=== PATIENT | male | born 1985 | race Caucasian/White ===

== ENCOUNTER 2021-06-23 08:05 | Emergency (ER) | payer SELFPAY ==
--- NOTE | 2021-06-23 08:13 | W.ED.CHESTPA ---
HPI - Chest Pain General: Chief Complaint: Chest Pain Stated Complaint: STABBING CP X 2 DAYS, DIFF BREATHING Time Seen by Provider: 06/23/21 08:07 History of Present Illness: HPI narrative: Mr. Merrill is a 36-year-old gentleman who presents the emergency department due to chest pain. Symptom onset was yesterday while at rest. He describes occasionally sharp and sometimes burning left anterior chest pain. There was one episode of radiation to the left arm which resolved and one episode of chills. He does have mild associated nausea. Overall the course of symptoms has persisted. Intensity is moderate. He denies exertional component or worsening with any particular activity or movement. He does have a history of tobaccoism and positive family history of early heart disease. No infectious symptoms. He denies sick contacts. Denies history of IV drug use he is not vaccinated against COVID-19. No other specific changes in health, exacerbating, or alleviating factors identified. Review of Systems General: Reports: 10 or more systems reviewed and unremarkable except in HPI and below Narrative: CONSTITUTIONAL: denies fever, fatigue, weakness EYES - denies pain, denies loss of vision NOSE - denies congestion or rhinorrhea. THROAT - denies sore throat or difficulty swallowing. CARDIOVASCULAR -see HPI RESPIRATORY -see HPI GASTROINTESTINAL - denies abdominal pain, no nausea vomiting, no changes in bowel habits GENITOURINARY - denies dysuria or urinary frequency MUSCULOSKELETAL- denies deformity or pain SKIN - denies rashes or new changed skin lesions NEUROLOGIC - denies focal weakness or sensory changes HEMATOLOGIC/LYMPHATIC - denies easy bruising or lymphadenopathy. Physical Exam Narrative: EXAM NARRATIVE: GENERAL/CONSTITUTIONAL - well-appearing. No acute distress. Eyes - PERRL, no conjunctival injection ENMT - Atraumatic external nose and ears. Moist mucous membranes NECK - supple. trachea midline CARDIOVASCULAR - regular rate and rhythm. No murmurs appreciated. RESPIRATORY -clear to auscultation bilaterally. No retractions or accessory muscle use. ABDOMEN/GI - Nontender/Nondistended. No tenderness to percussion or evidence of peritonitis MSK - Extremities without obvious deformity or tenderness to palpation SKIN - Warm, Dry NEURO - alert and appropriately oriented. strength and sensation intact. Moves all extremities equally. PSYCH - Appropriate mood and affect Course ED course: - Patient was seen and evaluated by me at bedside - Patient placed on cardiac monitors, IV access obtained - Initial evaluation notable for no acute distress, nontoxic appearance. Chest pain is not reproducible with palpation or deep inspiration on physical exam. - Based on initial EKG with concerning ST elevation in lead V1 and V2 patient was STEMI activated. Cardiology to bedside to evaluate patient, no acute intervention required at this time. - Labs notable for No significant abnormality to explain the patient's symptoms. D-dimer negative. Delta troponin negative with symptom onset greater than 6 hours ago. - Imaging notable for ED read of chest x-ray with no lobar consolidation or pneumothorax - Upon serial reexamination after treatment the patient was similar - Based on patient history, evaluation, labs, and imaging as interpreted the most likely cause of the patient's condition is unclear though based on low risk heart score does not require hospitalization at this time. Outpatient cardiology follow-up ordered. - The results of ED evaluation were discussed with the patient including prescriptions and/or symptomatic cares (if applicable) including appropriate and responsible use, followup plan, and return precautions. The patient verbalized understanding and felt safe for discharge. - Patient discharged in satisfactory condition. Vital Signs: Vital signs: Vital Signs Temperature 98.2 F 06/23/21 08:16 Pulse Rate 70 06/23/21 08:47 Respiratory Rate 23 H 06/23/21 08:47 Blood Pressure 129/75 06/23/21 08:47 Pulse Oximetry 98 06/23/21 08:47 MDM - Chest Pain Medical Records: Attestation: I reviewed the patient's medical records. Lab Data: Attestation: I reviewed the patient's lab results. Labs: Lab Results 06/23/21 06/23/21 06/23/21 Range/Units 08:25 08:25 08:25 WBC 8.7 (4.0-10.0) 10^3/ uL RBC 5.55 H (4.1-5.3) 10^6/u L Hgb 15.6 (11.7-16.6) g/dL Hct 47.8 (42.0-52.0) % MCV 86.1 (80-94) fl MCH 28.1 (28.0-34.0) pg MCHC 32.6 (30.0-36.0) g/dL RDW 13.1 (12.1-15.1) % Plt Count 194 (130-400) 10^3/c mm MPV 10.6 H (7.4-10.4) fL Neut % (Auto) 64.5 % Lymph % (Auto) 20.0 % [place] % (Auto) 10.3 % Eos % (Auto) 2.5 % Baso % (Auto) 1.3 % Neut # (Auto) 5.59 (1.8-7.7) 10^3/u L Lymph # (Auto) 1.7 (0.8-4.8) 10^3/u L [place] # (Auto) 0.9 (0.2-0.9) 10^3/u L Eos # (Auto) 0.2 (0.0-0.8) 10^3/u L Baso # (Auto) 0.1 (0.0-0.1) 10^3/u L Nucleated RBC % (a uto) 0 % Nucleated RBCs # 0.0 /100WBC D-Dimer (0-0.59) ug/mIFE U Sodium 138 (136-145) mmol/L Potassium 4.0 (3.5-5.1) mmol/L Chloride 102 (98-107) mmol/L Carbon Dioxide 30 H (22-29) mmol/L Anion Gap 10.0 (5-19) BUN 13 (6-20) mg/dL Creatinine 0.9 (0.7-1.2) mg/dL GFR Calculation 95.0 (90-130) mL/min Glucose 70 (65-115) mg/dL Calculated Osmolal ity 285 (285-295) mOsm/k g Calcium 9.7 (8.5-10.5) mg/dL Total Bilirubin 0.7 (0.15-1.2) mg/dL AST 43 H (0-40) U/L ALT 39 (0-41) U/L Alkaline Phosphata se 75 (40-130) IU/L Troponin T Baselin e 6 (0-15) ng/L Troponin T 120 Min [place] (0-15) ng/L Delta Troponin T (0-10) ABS# Total Protein 6.7 (6.6-8.7) g/dL Albumin 4.3 (3.5-5.2) g/dL Globulin 2.4 (1.3-4.6) g/dL Lipase 37 (13-60) U/L SARS-CoV-2 Ag (Rap id) (Negative) 06/23/21 06/23/21 06/23/21 Range/Units 08:45 10:55 11:25 WBC (4.0-10.0) 10^3/ uL RBC (4.1-5.3) 10^6/u L Hgb (11.7-16.6) g/dL Hct (42.0-52.0) % MCV (80-94) fl MCH (28.0-34.0) pg MCHC (30.0-36.0) g/dL RDW (12.1-15.1) % Plt Count (130-400) 10^3/c mm MPV (7.4-10.4) fL Neut % (Auto) % Lymph % (Auto) % [place] % (Auto) % Eos % (Auto) % Baso % (Auto) % Neut # (Auto) (1.8-7.7) 10^3/u L Lymph # (Auto) (0.8-4.8) 10^3/u L [place] # (Auto) (0.2-0.9) 10^3/u L Eos # (Auto) (0.0-0.8) 10^3/u L Baso # (Auto) (0.0-0.1) 10^3/u L Nucleated RBC % (a uto) % Nucleated RBCs # /100WBC D-Dimer 0.21 (0-0.59) ug/mIFE U Sodium (136-145) mmol/L Potassium (3.5-5.1) mmol/L Chloride (98-107) mmol/L Carbon Dioxide (22-29) mmol/L Anion Gap (5-19) BUN (6-20) mg/dL Creatinine (0.7-1.2) mg/dL GFR Calculation (90-130) mL/min Glucose (65-115) mg/dL Calculated Osmolal ity (285-295) mOsm/k g Calcium (8.5-10.5) mg/dL Total Bilirubin (0.15-1.2) mg/dL AST (0-40) U/L ALT (0-41) U/L Alkaline Phosphata se (40-130) IU/L Troponin T Baselin e (0-15) ng/L Troponin T 120 [address] [place] 6.00 (0-15) ng/L Delta Troponin T 0 (0-10) ABS# Total Protein (6.6-8.7) g/dL Albumin (3.5-5.2) g/dL Globulin (1.3-4.6) g/dL Lipase (13-60) U/L SARS-CoV-2 Ag (Rap id) Negative (Negative) EKG Data^: EKG 1: Attestation: I personally reviewed and interpreted this EKG as follows: EKG interpretation date: 06/23/21 EKG interpretation time: 08:45 Ischemic changes: acute STEMI Interpretation: Rhythm at a rate of 71. [place] interval 215, QRS duration 94, QTc 365 Normal axis Interpretation: Sinus rhythm. First-degree AV block. ST elevation in lead V1 and V2. STEMI activated. EKG 2: Attestation: I personally reviewed and interpreted this EKG as follows: EKG interpretation date: 06/23/21 EKG interpretation time: 10:55 Prior EKG tracings: available for review Ischemic changes: non-specific ST-T wave changes Interpretation: Twelve-lead EKG shows a regular sinus rhythm at a rate of 64. [place] interval 222, QRS duration 93, QTc 376. Normal axis. Interpretation: Sinus rhythm, similar to prior. Discharge Plan Discharge Patient Disposition: Home Clinical Impression: Chest pain, Shortness of breath Condition: Stable Prescriptions: No Action multivitamin Tablet 1 tab PO DAILY RF: 0 naproxen 1 - 2 tab PO Q4H PRN (Reason: Pain) RF: 0 prednisone 20 mg tablet 20 mg PO DAILY Qty: 7 RF: 0 Celebrex 100 mg capsule 100 mg PO BID Qty: 20 RF: 0 Discharge Orders: Discharge ED (Routine); Ordered 06/23/21 Ordered By: Asa Williamson Discharge Diet: Usual diet Discharge Activity: Resume usual activity Patient Instructions: Chest Pain (ED), Dyspnea (ED) Activity Restrictions/Additional Instructions: Thank you for visiting the emergency department. You were seen and evaluated for chest pain. The exact cause of your symptoms is somewhat unclear though we did not find evidence of heart attack or other significant pathology. Based on your history we will have you follow-up in outpatient basis with cardiology to determine if further evaluation is needed. Please follow-up with your primary care provider. Please return the emergency department for anything that you are concerned about and feel needs emergency department evaluation. Coding Level of Care Code ED Concrete Buster Operator for Tito Albrecht
[2021-06-23 08:16] VITALS: BP 151/81; PULSE 76; RESP 21; TEMP 36.8; O2SAT 100; BMI 26.7
--- NOTE | 2021-06-23 08:20 | XRR_ITS ---
PROCEDURE INFORMATION: Exam: XR Chest Exam date and time: 06/23/2021 8:20 AM Age: 36 years old Clinical indication: Pain; Shortness of breath; Angina pectoris; Additional info: Chest pain TECHNIQUE: Imaging protocol: XR of the chest. Views: 1 view. COMPARISON: CR Chest 1 [place] [id number] 10/29/2015 6:21 AM FINDINGS: Lungs: Unremarkable. No consolidation. Pleural spaces: Unremarkable. No pleural effusion. No pneumothorax. Heart/Mediastinum: Unremarkable. No cardiomegaly. Bones/joints: Unremarkable. XR/XR chest 1V portable [id number] IMPRESSION: No acute findings.
--- NOTE | 2021-06-23 08:20 | ECG_ITS ---
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 Measurements Intervals [place] Rate: 71 P: 48 CA: 215 QRS: 68 QRSD: 94 T: 62 QT: 343 QTc: 374 Interpretive Statements SINUS RHYTHM WITH SINUS ARRHYTHMIA WITH FIRST DEGREE AV BLOCK Compared to ECG 10/29/2015 06:15:58 First degree AV block now present Sinus tachycardia no longer present Electronically Signed On 06-25-2021 9:06:41 CDT by Genesis Hankins M.D. [id number]
[2021-06-23 08:32] VITALS: BP 151/81; PULSE 75; RESP 21; O2SAT 99
[2021-06-23 08:37] LABS: Basophils # 0.1 10^3/uL (0.0-0.1); Basophils % 1.3 %; Eosinophils # 0.2 10^3/uL (0.0-0.8); Eosinophils % 2.5 %; Hematocrit 47.8 % (42.0-52.0); Hemoglobin 15.6 g/dL (11.7-16.6); Lymphocytes # 1.7 10^3/uL (0.8-4.8); Mean Corpuscular HGB Conc 32.6 g/dL (30.0-36.0); Mean Corpuscular Hemoglobin 28.1 pg (28.0-34.0); Mean Corpuscular Volume 86.1 fl (80-94); Mean Platelet Volume 10.6 fL (7.4-10.4); Monocytes # 0.9 10^3/uL (0.2-0.9); Monocytes % 10.3 %; Neutrophils # 5.59 10^3/uL (1.8-7.7); Neutrophils % 64.5 %; Nucleated Red Blood Cells % 0 %; Platelet Count 194 10^3/cmm (130-400); Red Blood Count 5.55 10^6/uL (4.1-5.3); Red Cell Distribution Width 13.1 % (12.1-15.1); White Blood Count 8.7 10^3/uL (4.0-10.0)
[2021-06-23 08:47] VITALS: BP 129/75; PULSE 70; RESP 23; O2SAT 98
[2021-06-23] MEDS: acetaminophen 325 mg Tablet 1000 MG PO (08:55)
[2021-06-23] MEDS: sodium chloride 0.9% 1,000 ML 999 ML IV (08:55)
[2021-06-23] MEDS: aspirin 81 mg Chew Tablet 324 MG PO (08:55)
[2021-06-23 09:00] LABS: Alanine Aminotransferase 39 U/L (0-41); Albumin Level 4.3 g/dL (3.5-5.2); Alkaline Phosphatase 75 IU/L (40-130); Aspartate Amino Transferase 43 U/L (0-40); Blood Urea Nitrogen 13 mg/dL (6-20); Calcium 9.7 mg/dL (8.5-10.5); Carbon Dioxide 30 mmol/L (22-29); Chloride 102 mmol/L (98-107); Creatinine Clr Calc Pharmacy 130.8214; Globulin 2.4 g/dL (1.3-4.6); Glucose 70 mg/dL (65-115); Lipase 37 U/L (13-60); Osmolality Calculated 285 mOsm/kg (285-295); Sodium 138 mmol/L (136-145); Total Bilirubin 0.7 mg/dL (0.15-1.2); Total Protein 6.7 g/dL (6.6-8.7)
[2021-06-23 09:25] LABS: Troponin(5th) Baseline 6 ng/L (0-15)
--- NOTE | 2021-06-23 10:20 | ECG_ITS ---
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 Measurements Intervals [place] Rate: 64 P: 57 OR: 222 QRS: 72 QRSD: 93 T: 68 QT: 366 QTc: 380 Interpretive Statements SINUS RHYTHM WITH SINUS ARRHYTHMIA WITH FIRST DEGREE AV BLOCK Compared to ECG 06/23/2021 08:43:26 No significant changes Electronically Signed On 06-25-2021 10:42:04 CDT by Genesis Hankins M.D. [id number]
[2021-06-23 10:39] LABS: D Dimer 0.21 ug/mIFEU (0-0.59)
[2021-06-23] MEDS: lidocaine 2% viscous 15 ML, aluminum-mag hydrox-simethicon 30 ML, sucralfate oral liq 1 GM PO (11:26)
[2021-06-23 11:50] LABS: Troponin 5 2HR Delta 0 ABS# (0-10)
[2021-06-23 12:19] LABS: SARS Covid-2 Antigen Negative (Negative)
--- NOTE | 2021-06-24 15:04 | DCPLANNER ---
industrial engineering manager had message to schedule a follow up appointment for patient with heart care. industrial engineering manager called heart care, spoke with Laine, gave clinic patients information. A follow up appointment was scheduled for Tuesday, July 01, 2021 at 1:[address] Harper. industrial engineering manager called patient and gave patient the appointment information.
--- NOTE | 2021-07-10 11:19 | DCPLANNER ---
Patient had a follow up appointment scheduled for 07.01.21 with [facility] - patient did attend appointment.
== END 2021-06-23 12:26 | disposition home or self-care (01) ==
PROVIDERS: Emergency Provider Emergency Medicine
DX: R07.9 Chest pain, unspecified (principal); R06.02 Shortness of breath; Z20.822 Contact with and (suspected) exposure to COVID-19
CPT/HCPCS: 71045; 80053; 83690; 84484; 85025; 85378; 87426; 93005; 96360; 99284; J7030

== ENCOUNTER 2021-06-23 20:31 | Emergency (ER) | payer SELFPAY ==
[2021-06-23 20:45] VITALS: BP 129/81; PULSE 76; RESP 16; TEMP 36.7; O2SAT 97; BMI 26.6
--- NOTE | 2021-06-23 20:46 | XRR_ITS ---
PROCEDURE INFORMATION: Exam: XR Chest Exam date and time: 06/23/2021 8:46 PM Age: 36 years old Clinical indication: Pain; Left-sided; Patient HX: Left sided cp, SOB x 2days TECHNIQUE: Imaging protocol: XR of the chest. Views: 1 view. COMPARISON: CR XR chest 1V portable [id number] 06/23/2021 8:20 AM FINDINGS: Lungs: Unremarkable. No consolidation. Pleural spaces: Unremarkable. No pleural effusion. No pneumothorax. Heart/Mediastinum: Unremarkable. No cardiomegaly. Bones/joints: Unremarkable. XR/XR chest 1V portable [id number] IMPRESSION: No change, unremarkable
[2021-06-23 21:14] LABS: Basophils # 0.1 10^3/uL (0.0-0.1); Basophils % 1.2 %; Eosinophils # 0.3 10^3/uL (0.0-0.8); Eosinophils % 2.9 %; Hematocrit 46.4 % (42.0-52.0); Hemoglobin 15.3 g/dL (11.7-16.6); Lymphocytes # 2.1 10^3/uL (0.8-4.8); Lymphocytes % 23.7 %; Mean Corpuscular Hemoglobin 28.3 pg (28.0-34.0); Mean Corpuscular Volume 85.9 fl (80-94); Mean Platelet Volume 10.7 fL (7.4-10.4); Monocytes # 0.8 10^3/uL (0.2-0.9); Neutrophils # 5.53 10^3/uL (1.8-7.7); Nucleated Red Blood Cells % 0 %; Platelet Count 193 10^3/cmm (130-400); Red Cell Distribution Width 13.2 % (12.1-15.1); White Blood Count 8.9 10^3/uL (4.0-10.0)
[2021-06-23 21:59] LABS: Troponin(5th) Baseline 6 ng/L (0-15)
[2021-06-23 22:00] LABS: Alanine Aminotransferase 40 U/L (0-41); Albumin Level 4.3 g/dL (3.5-5.2); Alkaline Phosphatase 76 IU/L (40-130); Anion Gap 16.2 (5-19); Aspartate Amino Transferase 38 U/L (0-40); Blood Urea Nitrogen 13 mg/dL (6-20); Calcium 9.5 mg/dL (8.5-10.5); Carbon Dioxide 25 mmol/L (22-29); Chloride 104 mmol/L (98-107); Globulin 2.6 g/dL (1.3-4.6); Glomerular Filtration Rate 108.8 mL/min (90-130); Glucose 91 mg/dL (65-115); Osmolality Calculated 292 mOsm/kg (285-295); Potassium 4.2 mmol/L (3.5-5.1); Sodium 141 mmol/L (136-145); Total Bilirubin 0.7 mg/dL (0.15-1.2); Total Protein 6.9 g/dL (6.6-8.7)
[2021-06-23 22:43] LABS: D Dimer <= 0.27 ug/mIFEU (0-0.59)
[2021-06-23 23:23] LABS: Troponin 5 2HR Delta 0 ABS# (0-10)
--- NOTE | 2021-06-23 23:50 | W.ED.CHESTPA ---
HPI - Chest Pain General: Chief Complaint: Chest Pain Stated Complaint: Chest Pain Time Seen by Provider: 06/23/21 23:29 History of Present Illness: HPI narrative: Patient complains about ongoing chest pain. Radiates from around his back to from the chest. Denies nausea vomiting diaphoresis shortness of breath. 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 Was seen earlier today had a work-up negative. MD complaint: chest discomfort Timing of current episode: constant Prior episodes: Yes Associated symptoms: Deny abdominal pain, dyspnea, fever(s), nausea or vomiting Review of Systems Const: Denies: fever(s), chills or body aches Eyes: Denies: change in vision or blurry vision ENMT: Denies: throat pain or nasal congestion Card: Reports: chest pain; Denies: dyspnea on exertion Resp: Denies: dyspnea, productive cough or non-productive cough GI: Denies: abdominal pain, nausea or vomiting : Denies: difficulty urinating Musc: Reports: back pain; Denies: extremity pain Skin/Breast: Denies: rash Neuro: Denies: headache(s) Psych: Denies: anxiety or depression Lex/Lymph: Denies: easy bruising Physical Exam Const: COMMON NORMALS: no acute distress, average body habitus and patient oriented x3 HENMT: COMMON NORMALS: normocephalic HEAD & SCALP: normal to inspection and normocephalic FACE & SINUS: normal facial exam Eye: COMMON NORMALS: conjunctivae normal GENERAL EYE: appearance normal, both eyes and all related structures CONJUNCTIVA: Yes conjunctivae normal Neck/C-Spine: COMMON NORMALS: no JVD Chest: COMMONS NORMALS: normal inspection of the chest Resp: COMMON NORMALS: normal respiratory effort and clear to auscultation bilaterally AUSCULTATION: clear to auscultation bilaterally Cardio: COMMON NORMALS: no JVD, regular rate and regular rhythm RATE: regular rate RHYTHM: regular rhythm GI: COMMON NORMALS: Normal to inspection, nondistended, normoactive bowel sounds present Back/Pelvis: THORACIC SPINE/UPPER BACK: No thoracic spinal tenderness, Yes paraspinal muscle tenderness and No paraspinal muscle spasm Extremity: COMMON NORMALS: normal to inspection and full ROM Neuro: COMMON NORMALS: patient oriented x3 Course Vital Signs: Vital signs: Vital Signs Temperature 98.0 F 09/07/21 20:45 Pulse Rate 76 06/23/21 20:45 Respiratory Rate 16 06/23/21 20:45 Blood Pressure 129/81 06/23/21 20:45 Pulse Oximetry 97 06/23/21 20:45 MDM - Chest Pain MDM Narrative: Medical decision making narrative: Discussed case with Dr. Smiley went over the labs late radiology results EKG. Agreed upon plan. Patient most likely has discomfort related to his heavy intense weight lifting which is caused inflammation on nerve roots coming from his thoracic spine. Lab Data: Labs: Lab Results 06/23/21 06/23/21 06/23/21 Range/Units 21:00 21:00 21:00 WBC 8.9 (4.0-10.0) 10^3/ uL RBC 5.40 H (4.1-5.3) 10^6/u L Hgb 15.3 (11.7-16.6) g/dL Hct 46.4 (42.0-52.0) % MCV 85.9 (80-94) fl MCH 28.3 (28.0-34.0) pg MCHC 33.0 (30.0-36.0) g/dL RDW 13.2 (12.1-15.1) % Plt Count 193 (130-400) 10^3/c mm MPV 10.7 H (7.4-10.4) fL Neut % (Auto) 62.0 % Lymph % (Auto) 23.7 % [place] % (Auto) 9.0 % Eos % (Auto) 2.9 % Baso % (Auto) 1.2 % Neut # (Auto) 5.53 (1.8-7.7) 10^3/u L Lymph # (Auto) 2.1 (0.8-4.8) 10^3/u L [place] # (Auto) 0.8 (0.2-0.9) 10^3/u L Eos # (Auto) 0.3 (0.0-0.8) 10^3/u L Baso # (Auto) 0.1 (0.0-0.1) 10^3/u L Nucleated RBC % (a uto) 0 % Nucleated RBCs # 0.0 /100WBC D-Dimer <= 0.27 (0-0.59) ug/mIFE U Sodium 141 (136-145) mmol/L Potassium 4.2 (3.5-5.1) mmol/L Chloride 104 (98-107) mmol/L Carbon Dioxide 25 (22-29) mmol/L Anion Gap 16.2 (5-19) BUN 13 (6-20) mg/dL Creatinine 0.8 (0.7-1.2) mg/dL GFR Calculation 108.8 (90-130) mL/min Glucose 91 (65-115) mg/dL Calculated Osmolal ity 292 (285-295) mOsm/k g Calcium 9.5 (8.5-10.5) mg/dL Total Bilirubin 0.7 (0.15-1.2) mg/dL AST 38 (0-40) U/L ALT 40 (0-41) U/L Alkaline Phosphata se 76 (40-130) IU/L Troponin T Baselin e (0-15) ng/L Troponin T 120 [address] [place] (0-15) ng/L Delta Troponin T (0-10) ABS# Total Protein 6.9 (6.6-8.7) g/dL Albumin 4.3 (3.5-5.2) g/dL Globulin 2.6 (1.3-4.6) g/dL 06/23/21 06/23/21 Range/Units 21:00 23:00 WBC (4.0-10.0) 10^3/ uL RBC (4.1-5.3) 10^6/u L Hgb (11.7-16.6) g/dL Hct (42.0-52.0) % MCV (80-94) fl MCH (28.0-34.0) pg MCHC (30.0-36.0) g/dL RDW (12.1-15.1) % Plt Count (130-400) 10^3/c mm MPV (7.4-10.4) fL Neut % (Auto) % Lymph % (Auto) % [place] % (Auto) % Eos % (Auto) % Baso % (Auto) % Neut # (Auto) (1.8-7.7) 10^3/u L Lymph # (Auto) (0.8-4.8) 10^3/u L [place] # (Auto) (0.2-0.9) 10^3/u L Eos # (Auto) (0.0-0.8) 10^3/u L Baso # (Auto) (0.0-0.1) 10^3/u L Nucleated RBC % (a uto) % Nucleated RBCs # /100WBC D-Dimer (0-0.59) ug/mIFE U Sodium (136-145) mmol/L Potassium (3.5-5.1) mmol/L Chloride (98-107) mmol/L Carbon Dioxide (22-29) mmol/L Anion Gap (5-19) BUN (6-20) mg/dL Creatinine (0.7-1.2) mg/dL GFR Calculation (90-130) mL/min Glucose (65-115) mg/dL Calculated Osmolal ity (285-295) mOsm/k g Calcium (8.5-10.5) mg/dL Total Bilirubin (0.15-1.2) mg/dL AST (0-40) U/L ALT (0-41) U/L Alkaline Phosphata se (40-130) IU/L Troponin T Baselin e 6 (0-15) ng/L Troponin T 120 [address] [place] 6.00 (0-15) ng/L Delta Troponin T 0 (0-10) ABS# Total Protein (6.6-8.7) g/dL Albumin (3.5-5.2) g/dL Globulin (1.3-4.6) g/dL Discharge Plan Discharge Patient Disposition: Home Clinical Impression: Thoracic back pain Qualifiers: Chronicity: acute Back pain laterality: bilateral Qualified Code(s): M54.6 - Pain in thoracic spine Condition: Stable Prescriptions: New prednisone 20 mg tablet 20 mg PO DAILY Qty: 7 RF: 0 Celebrex 100 mg capsule 100 mg PO BID Qty: 20 RF: 0 No Action multivitamin Tablet 1 tab PO DAILY RF: 0 naproxen 1 - 2 tab PO Q4H PRN (Reason: Pain) RF: 0 Discharge Orders: Discharge ED (Routine); Ordered 06/23/21 Ordered By: Ernesto Huber Discharge Diet: Usual diet Discharge Activity: Limit activity as instructed Activity Restrictions/Additional Instructions: Follow-up with medical provider as directed. Take medications as prescribed. Return to the ER or your medical provider if condition worsens. Please read and understand discharge instructions. If any questions ask please. No weight lifting for 4 weeks. Follow-up chiropractor would benefit you. Apply ice and moist heat alternate those to your mid back. Coding Level of Care Code ED Dip Brazier for Tito Fwla Exam Comprehensive
[2021-06-24] MEDS: predniSONE 20 mg Tablet 60 MG PO (00:08)
[2021-06-24 00:47] VITALS: BP 122/75; PULSE 75; RESP 18; O2SAT 98
== END 2021-06-24 00:40 | disposition home or self-care (01) ==
PROVIDERS: Emergency Medicine; Emergency Provider Nurse Practitioner Family
DX: M54.6 Pain in thoracic spine (principal)
CPT/HCPCS: 36415; 71045; 80053; 84484; 85025; 85378; 99283; J7512

== ENCOUNTER 2023-02-10 21:08 | Inpatient (IN) | payer SELFPAY ==
[2023-02-10 21:40] VITALS: BP 121/84; PULSE 97; RESP 16; TEMP 36.9; O2SAT 100; BMI 24.4
--- NOTE | 2023-02-10 22:05 | W.ED.PSYCHS ---
HPI - Psych General: Chief Complaint: Psychiatric Symptoms Stated Complaint: Sent him Here\MHE Time Seen by Provider: 02/10/23 21:24 Source: patient Mode of arrival: ambulatory Limitations: no limitations History of Present Illness: Katharine comes to our emergency department this evening because of increasingly more sad and melancholy and tearful that is been progressing over the past 2 to 3 months. He states that the only thing it is seemingly allowed him to keep an even keel at all his use of marijuana on occasion. He states he has used other types of illicit substances in the past but is never been on a regular basis and its only if he is around others who are doing those substances. In fact he states other than marijuana he has been entirely clean for several weeks hoping that would make him feel better. He states that there is been no defining precipitating event to how he has been feeling but just multiple life issues. He states if he owned a weapon he would shoot himself but fortunately he does not own one. He is willing to do what ever it takes to improve his mental health. He has had no prior history of hospitalizations. His general medical health is good without any complaints. MD complaint: suicidal ideation and feels depressed Associated psychiatric symptoms: suicidal ideation Associated symptoms: Reports depression and suicidal ideation; Deny auditory hallucinations or visual hallucinations Treatments prior to arrival: none If self harm: admits thoughts of self harm Review of Systems Const: Denies: fever(s) or chills Card: Denies: chest pain, palpitations or irregular heart rhythm Resp: Denies: dyspnea, productive cough or non-productive cough GI: Denies: abdominal pain, nausea, vomiting or diarrhea : Denies: flank pain, difficulty urinating or dysuria Musc: Denies: neck pain, back pain or extremity pain Skin/Breast: Denies: rash or pruritus Neuro: Denies: headache(s), numbness in extremities or weakness in extremities Psych: Reports: depression, loss of interest and suicidal ideation; Denies: visual hallucinations or auditory hallucinations [facility] ED PFSH: Medical History Anxiety Smoker Stress Family History Mother Brain tumor Father Heart attack Diabetes Stroke Brother Stroke Social History (Reviewed 02/10/23 @ 22:10 by ISAI Wilkes Smoking and tobacco status: current every day smoker Alcohol intake: former Substance/Drug Use: never Physical Exam Narrative: EXAM NARRATIVE: The patient makes good eye contact. He has a flat affect with monotonous low-volume speech. Does answer questions in a generally goal-directed fashion. Const: COMMON NORMALS: average body habitus, patient oriented x3, healthy appearing and alert GENERAL APPEARANCE: cooperative HENMT: COMMON NORMALS: normocephalic, moist oral mucous membranes and oropharynx normal HEAD & SCALP: normocephalic Eye: COMMON NORMALS: Equal, round and reactive pupils present, EOMs intact bilaterally and conjunctivae normal CONJUNCTIVA: Yes conjunctivae normal PUPIL: Yes Equal, round and reactive pupils present Neck/C-Spine: COMMON NORMALS: full ROM and no lymphadenopathy Chest: COMMONS NORMALS: normal inspection of the chest Resp: COMMON NORMALS: normal respiratory effort EFFORT & INSPECTION: Yes able to speak in complete sentences Cardio: COMMON NORMALS: regular rate and Peripheral pulses 2+ throughout RATE: regular rate PERIPHERAL PULSES: Peripheral pulses 2+ throughout GI: COMMON NORMALS: Normal to inspection, nondistended, normoactive bowel sounds present Back/Pelvis: COMMON NORMALS: thoracic and lumbar spine normal to inspection and thoraco-lumbar ROM normal Extremity: COMMON NORMALS: normal to inspection, full ROM, capillary refill normal and no pedal edema Neuro: COMMON NORMALS: patient oriented x3, moves all extremities, no focal motor deficits and no sensory deficits noted SENSORIUM/ORIENTATION: Yes alert Psych: COMMON NORMALS: mental status grossly normal and cooperative APPEARANCE: Yes grossly normal ATTITUDE: Yes Withdrawn affect present ACTIVITY/MOTOR BEHAVIOR: Yes fidgeting SPEECH: Yes soft MOOD & AFFECT: Yes depressed mood and Yes tearful THOUGHT PROCESS: Circumstantial thought process present and Impoverished thought process present THOUGHT CONTENT: Yes Suicidality present ATTENTION/CONCENTRATION: Yes attention grossly intact MEMORY/COGNITION: Yes memory grossly intact INSIGHT: Fair insight present (Psych) JUDGEMENT: Fair judgement present (Psych) Skin: COMMON NORMALS: no rashes or lesions noted GENERAL SKIN EXAM: no rashes or lesions noted Course Consultations: Consultation #1: I reviewed the current patient's presentation with Dr. Landers attending psychiatrist. He agreed to the patient's admission to the psychiatric unit for further evaluation. Time: 22:17 Vital Signs: Vital signs: Vital Signs Temperature 98.4 F 04/27/23 21:40 Pulse Rate 97 02/10/23 21:40 Respiratory Rate 16 02/10/23 21:40 Blood Pressure 121/84 02/10/23 21:40 Pulse Oximetry 100 02/10/23 21:40 Oxygen Delivery Me thod Room Air 02/10/23 21:40 MDM - Psych Medical Decision Making This patient presented to our emergency department with symptoms of depression that have been present for approximately 2-3 months and progressively worsened and more pervasive. There is some history of intermittent marijuana use and what it appears to be a attempt at self treatment. He is also experimented and used other substances but does not give a clinical appearance to suggest any influence of mind altering substances at this time. He has interview and psychological screening evaluation revealed an individual with depressed affect who is tearful and desiring help. His clinical exam did not suggest that he ongoing medical condition that precludes him from having a mental health evaluation He is willing and cooperative and desires help. Lab Data I reviewed the patient's lab results. 02/10/23 22:08 02/10/23 22:08 Laboratory Results WBC 8.5 10^3/uL (4.0-10.0) 02/10/23 22:08 RBC 5.81 10^6/uL (4.1-5.3) H 02/10/23 22:08 Hgb 16.0 g/dL (11.7-16.6) 02/10/23 22:08 Hct 49.4 % (42.0-52.0) 02/10/23 22:08 MCV 85.0 fl (80-94) 02/10/23 22:08 MCH 27.5 pg (28.0-34.0) L 02/10/23 22:08 MCHC 32.4 g/dL (30.0-36.0) 02/10/23 22:08 RDW 13.7 % (12.1-15.1) 02/10/23 22:08 Plt Count 225 10^3/cmm (130-400) 02/10/23 22:08 MPV 9.8 fL (7.4-10.4) 02/10/23 22:08 Neut % (Auto) 60.2 % 02/10/23 22:08 Lymph % (Auto) 25.4 % 02/10/23 22:08 Carolina % (Auto) 8.5 % 02/10/23 22:08 Eos % (Auto) 3.6 % 02/10/23 22:08 Baso % (Auto) 1.5 % 02/10/23 22:08 Neut # (Auto) 5.08 10^3/uL (1.8-7.7) 02/10/23 22:08 Lymph # (Auto) 2.2 10^3/uL (0.8-4.8) 02/10/23 22:08 Carolina # (Auto) 0.7 10^3/uL (0.2-0.9) 02/10/23 22:08 Eos # (Auto) 0.3 10^3/uL (0.0-0.8) 02/10/23 22:08 Baso # (Auto) 0.1 10^3/uL (0.0-0.1) 02/10/23 22:08 Nucleated RBC % (auto) 0 % 02/10/23 22:08 Nucleated RBCs # 0.0 /100WBC 02/10/23 22:08 Sodium 138 mmol/L (136-145) 02/10/23 22:08 Potassium 4.1 mmol/L (3.5-5.1) 02/10/23 22:08 Chloride 101 mmol/L (98-107) 02/10/23 22:08 Carbon Dioxide 28 mmol/L (22-29) 02/10/23 22:08 Anion Gap 13.1 (5-19) 02/10/23 22:08 BUN 9 mg/dL (6-20) 02/10/23 22:08 Creatinine 0.8 mg/dL (0.7-1.2) 02/10/23 22:08 GFR Calculation 108.2 mL/min (90-130) 02/10/23 22:08 Glucose 79 mg/dL (65-115) 02/10/23 22:08 Calculated Osmolality 284 mOsm/kg (285-295) L 02/10/23 22:08 Calcium 9.1 mg/dL (8.5-10.5) 02/10/23 22:08 Total Bilirubin 0.5 mg/dL (0.15-1.2) 02/10/23 22:08 AST 20 U/L (0-40) 02/10/23 22:08 ALT 21 U/L (0-41) 02/10/23 22:08 Alkaline Phosphatase 83 U/L (40-130) 02/10/23 22:08 Total Protein 7.1 g/dL (6.6-8.7) 02/10/23 22:08 Albumin 4.1 g/dL (3.5-5.2) 02/10/23 22:08 Globulin 3.0 g/dL (1.3-4.6) 02/10/23 22:08 Salicylates < 0.3 mg/dL (3-10) L 02/10/23 22:08 Acetaminophen < 5.0 ug/mL (10-30) L 02/10/23 22:08 Ethyl Alcohol < 10 mg/dL (0-10) 02/10/23 22:08 Discharge Plan Discharge Patient Disposition: Admitted As Inpatient Admit Provider: Rock Landers Clinical Impression: Suicidal ideation, Depression Condition: Stable Coding Level of Care Code ED Legal Office Administrator for Tito Albrecht
[2023-02-10 22:18] VITALS: BP 124/85; PULSE 84; RESP 18; TEMP 36.6; O2SAT 100
[2023-02-10 22:21] LABS: Basophils # 0.1 10^3/uL (0.0-0.1); Basophils % 1.5 %; Eosinophils # 0.3 10^3/uL (0.0-0.8); Eosinophils % 3.6 %; Hematocrit 49.4 % (42.0-52.0); Lymphocytes # 2.2 10^3/uL (0.8-4.8); Lymphocytes % 25.4 %; Mean Corpuscular HGB Conc 32.4 g/dL (30.0-36.0); Mean Corpuscular Hemoglobin 27.5 pg (28.0-34.0); Mean Platelet Volume 9.8 fL (7.4-10.4); Monocytes # 0.7 10^3/uL (0.2-0.9); Monocytes % 8.5 %; Neutrophils # 5.08 10^3/uL (1.8-7.7); Neutrophils % 60.2 %; Nucleated Red Blood Cells % 0 %; Platelet Count 225 10^3/cmm (130-400); Red Blood Count 5.81 10^6/uL (4.1-5.3); Red Cell Distribution Width 13.7 % (12.1-15.1); White Blood Count 8.5 10^3/uL (4.0-10.0)
[2023-02-10 22:38] LABS: Alanine Aminotransferase 21 U/L (0-41); Albumin Level 4.1 g/dL (3.5-5.2); Alkaline Phosphatase 83 U/L (40-130); Anion Gap 13.1 (5-19); Aspartate Amino Transferase 20 U/L (0-40); Blood Urea Nitrogen 9 mg/dL (6-20); Calcium 9.1 mg/dL (8.5-10.5); Carbon Dioxide 28 mmol/L (22-29); Chloride 101 mmol/L (98-107); Creatinine Clr Calc Pharmacy 140.2833; Glomerular Filtration Rate 108.2 mL/min (90-130); Glucose 79 mg/dL (65-115); Osmolality Calculated 284 mOsm/kg (285-295); Potassium 4.1 mmol/L (3.5-5.1); Sodium 138 mmol/L (136-145); Total Bilirubin 0.5 mg/dL (0.15-1.2); Total Protein 7.1 g/dL (6.6-8.7)
[2023-02-10 22:41] LABS: Acetaminophen < 5.0 ug/mL (10-30); Alcohol Level < 10 mg/dL (0-10); Salicylate < 0.3 mg/dL (3-10)
[2023-02-11 06:00] VITALS: RESP 16
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
[2023-02-11] MEDS: OLANZapine 5 mg ODT PO (11:47)
--- NOTE | 2023-02-11 11:47 | PC.NURSE ---
pt states extremely nervous and anxious. he stated he had serve 22 years in assisted and being in this facility is making him feel like he is back there. adminstered zyprexia.
[2023-02-11 14:00] VITALS: RESP 16
[2023-02-11] MEDS: risperiDONE 1 mg Tablet PO (19:47)
[2023-02-11 21:51] VITALS: BP 105/68; PULSE 103; RESP 16; TEMP 36.6; O2SAT 97
[2023-02-12 06:00] VITALS: RESP 18
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
[2023-02-12 12:57] VITALS: RESP 18
== END 2023-02-12 13:31 | disposition home or self-care (01) | DRG 881 ==
LOC: ER 22:24 → NP 22:26
PROVIDERS: Emergency Medicine; Admitting Provider Psychiatry & Neurology Psychiatry; Emergency Provider Emergency Medicine; Visit Provider Psychiatry & Neurology Psychiatry
DX: F32.A Depression, unspecified (principal); R45.851 Suicidal ideations; F41.9 Anxiety disorder, unspecified; F43.10 Post-traumatic stress disorder, unspecified; F63.81 Intermittent explosive disorder; F60.2 Antisocial personality disorder; F17.210 Nicotine dependence, cigarettes, uncomplicated; Z87.820 Personal history of traumatic brain injury; Z81.8 Family history of other mental and behavioral disorders; Z81.4 Family history of other substance abuse and dependence; Z65.3 Problems related to other legal circumstances
CPT/HCPCS: 80053; 80307; 85025; 97165; 99285

== ENCOUNTER 2023-03-16 09:40 | Emergency (ER) | payer MEDICAID, SELFPAY ==
[2023-03-16] VITALS (23 sets, daily range): BP systolic 125–134; BP diastolic 79–87; PULSE 66–93; RESP 12–28; TEMP 36.8; O2SAT 96–100; BMI 3729.8
--- NOTE | 2023-03-16 09:58 | ED_ITS ---
HPI - Chest Pain General: Chief Complaint: Chest Pain Stated Complaint: chest pain Time Seen by Provider: 03/16/23 09:55 Source: patient Mode of arrival: ambulatory Limitations: no limitations History of Present Illness: Patient is a 38-year-old male currently residing at [facility] here for complaints of chest pain that started yesterday evening. He states it feels like a rolling sensation in the left side of his chest. Feels like pain radiated into his left shoulder. He felt like pain was intermittent at time of onset. He states he was able to sleep normally yesterday evening. He states this morning when staff took his vital signs they noticed his blood pressure was elevated. BP normal and no active chest pain upon arrival to ED. He has no known cardiac or pulmonary history. Denies shortness of breath or difficulty breathing. No cough or fevers. MD complaint: chest pain Onset (ago): hour(s) Timing of current episode: episodic Prior episodes: No Onset: during rest Pain location: left chest Pain radiation: left shoulder Severity: mild Quality: other ( rolling sensation ) Relieving factors: nothing Exacerbating factors: movement (feels like movement of the left shoulder) Associated symptoms: Reports no associated symptoms; Deny abdominal pain, dyspnea, fever(s), nausea, palpitations, syncope or vomiting Treatment prior to arrival: none Risk Factors: Coronary artery disease risk factors: none Thoracic aortic dissection risk factors: none Review of Systems Const: Denies: fever(s), chills, body aches, fatigue or malaise Eyes: Denies: change in vision or blurry vision Card: Reports: chest pain (resolved now); Denies: palpitations, irregular heart rhythm, lightheadedness, syncope or dyspnea on exertion Resp: Denies: dyspnea, productive cough or pain on inspiration GI: Denies: abdominal pain, nausea, vomiting, heartburn or diarrhea : Denies: difficulty urinating or dysuria Musc: Denies: neck pain, back pain, extremity pain, extremity swelling, joint pain, joint swelling, joint redness or joint warmth Skin/Breast: Denies: rash Neuro: Denies: headache(s) or dizziness PFSH ED PFSH: Medical History Anxiety Smoker Stress Family History Mother Brain tumor Father Heart attack Diabetes Stroke Brother Stroke Social History Smoking and tobacco status: current every day smoker Alcohol intake: former Substance/Drug Use: never Physical Exam Const: COMMON NORMALS: no acute distress, average body habitus, patient oriented x3, no limitations, healthy appearing, alert and well nourished GENERAL APPEARANCE: cooperative ORIENTATION/CONSCIOUSNESS: Yes awake, Yes oriented to person, Yes oriented to place and Yes oriented to time HENMT: COMMON NORMALS: normocephalic and atraumatic HEAD & SCALP: normal to inspection, normocephalic and atraumatic Neck/C-Spine: COMMON NORMALS: full ROM, no lymphadenopathy, supple and no meningeal signs Chest: COMMONS NORMALS: normal inspection of the chest and normal palpation of entire chest wall Resp: COMMON NORMALS: normal respiratory effort and clear to auscultation bilaterally AUSCULTATION: clear to auscultation bilaterally Cardio: COMMON NORMALS: regular rate and regular rhythm RATE: regular rate RHYTHM: regular rhythm GI: COMMON NORMALS: Normal to inspection, nondistended, normoactive bowel sounds present, Soft to palpation, non-tender, No hepatosplenomegaly present and no masses PALPATION: Yes Soft to palpation and Yes No hepatosplenomegaly present Back/Pelvis: COMMON NORMALS: thoracic and lumbar spine normal to inspection, no thoracic nor lumbar tenderness and thoraco-lumbar ROM normal Extremity: COMMON NORMALS: normal to inspection and full ROM GENERAL: Yes normal exam except as noted Neuro: [place] COMA SCALE: document GCS findings [place] coma scale eye opening: Spontaneous [place] coma scale verbal response: Orientated [place] coma scale motor response: Obey commands [place] coma scale total score: 15 COMMON NORMALS: patient oriented x3, moves all extremities, no focal motor deficits and no sensory deficits noted SENSORIUM/ORIENTATION: Yes alert, Yes oriented to person, Yes oriented to place and Yes oriented to time MENINGEAL SIGNS: Yes no meningeal signs Skin: COMMON NORMALS: no rashes or lesions noted GENERAL SKIN EXAM: no rashes or lesions noted Course Vital Signs: Vital signs: Vital Signs Temperature 98.2 F 03/16/23 09:48 Pulse Rate 73 03/16/23 11:15 Respiratory Rate 18 03/16/23 11:15 Blood Pressure 134/79 03/16/23 11:15 Pulse Oximetry 99 03/16/23 11:15 Oxygen Delivery Me thod Room Air 03/16/23 09:48 MDM - Chest Pain Medical Decision Making Patient's chest pain beginning yesterday evening. He is asymptomatic upon arrival. Vital signs are stable. Blood work including baseline troponin and EKG are normal. No need for patient to stay for a 2-hour troponin based on timing of onset of symptoms. Heart score at this time would be 0. Patient is stable for discharge. We will go ahead and place a referral to get him set up with a primary care provider for further evaluation if symptoms persist. Return ED precautions given. Lab Data 03/16/23 10:18 03/16/23 10:18 Radiology Impressions Chest X-Ray 03/16/23 09:59 IMPRESSION: Unremarkable chest radiograph. Laboratory Results WBC 8.7 10^3/uL (4.0-10.0) 03/16/23 10:18 RBC 5.42 10^6/uL (4.1-5.3) H 03/16/23 10:18 Hgb 15.2 g/dL (11.7-16.6) 03/16/23 10:18 Hct 45.9 % (42.0-52.0) 03/16/23 10:18 MCV 84.7 fl (80-94) 03/16/23 10:18 MCH 28.0 pg (28.0-34.0) 03/16/23 10:18 MCHC 33.1 g/dL (30.0-36.0) 03/16/23 10:18 RDW 13.7 % (12.1-15.1) 03/16/23 10:18 Plt Count 193 10^3/cmm (130-400) 03/16/23 10:18 MPV 10.3 fL (7.4-10.4) 03/16/23 10:18 Neut % (Auto) 54.6 % 03/16/23 10:18 Lymph % (Auto) 28.9 % 03/16/23 10:18 [place] % (Auto) 9.5 % 03/16/23 10:18 Eos % (Auto) 2.5 % 03/16/23 10:18 Baso % (Auto) 1.4 % 03/16/23 10:18 Neut # (Auto) 4.76 10^3/uL (1.8-7.7) 03/16/23 10:18 Lymph # (Auto) 2.5 10^3/uL (0.8-4.8) 03/16/23 10:18 [place] # (Auto) 0.8 10^3/uL (0.2-0.9) 03/16/23 10:18 Eos # (Auto) 0.2 10^3/uL (0.0-0.8) 03/16/23 10:18 Baso # (Auto) 0.1 10^3/uL (0.0-0.1) 03/16/23 10:18 Nucleated RBC % (auto) 0 % 03/16/23 10:18 Nucleated RBCs # 0.0 /100WBC 03/16/23 10:18 Sodium 139 mmol/L (136-145) 03/16/23 10:18 Potassium 4.0 mmol/L (3.5-5.1) 03/16/23 10:18 Chloride 102 mmol/L (98-107) 03/16/23 10:18 Carbon Dioxide 27 mmol/L (22-29) 03/16/23 10:18 Anion Gap 14.0 (5-19) 03/16/23 10:18 BUN 14 mg/dL (6-20) 03/16/23 10:18 Creatinine 0.8 mg/dL (0.7-1.2) 03/16/23 10:18 GFR Calculation 107.6 mL/min (90-130) 03/16/23 10:18 Glucose 93 mg/dL (65-115) 03/16/23 10:18 Calculated Osmolality 288 mOsm/kg (285-295) 03/16/23 10:18 Calcium 9.2 mg/dL (8.5-10.5) 03/16/23 10:18 Total Bilirubin 0.8 mg/dL (0.15-1.2) 03/16/23 10:18 AST 24 U/L (0-40) 03/16/23 10:18 ALT 35 U/L (0-41) 03/16/23 10:18 Alkaline Phosphatase 75 U/L (40-130) 03/16/23 10:18 Troponin T Gen 5 ng/L 6 ng/L (0-15) 03/16/23 10:18 Total Protein 7.5 g/dL (6.6-8.7) 03/16/23 10:18 Albumin 4.7 g/dL (3.5-5.2) 03/16/23 10:18 Globulin 2.8 g/dL (1.3-4.6) 03/16/23 10:18 Discharge Plan Discharge Patient Disposition: Home Clinical Impression: Atypical chest pain Condition: Stable Prescriptions: No Action risperidone 1 mg Tablet 1 mg PO BID 30 Days Qty: 60 1RF Discharge Orders: Discharge ED (Routine); Ordered 03/16/23 Ordered By: Melissa Villafana Patient Instructions: Noncardiac Chest Pain (ED) Coding Level of Care Code ED Call Center Support Consultant for Tito Albrecht
--- NOTE | 2023-03-16 09:59 | XR_ITS ---
WS: [id number] Exam: XR chest 1V portable [id number] Date/Time of Exam: 03/16/2023 10:04 AM Reason For Exam: chest pain Comparison 06/23/2021. Findings: The lungs are clear and fully expanded. Costophrenic angles are sharp. No infiltrates. Bronchovascula r relief appears normal. Cardiac silhouette is unremarkable. Bony elements are intact. XR/XR chest 1V portable [id number] IMPRESSION: Unremarkable chest radiograph.
--- NOTE | 2023-03-16 10:04 | ECG_ITS ---
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 Measurements Intervals [place] Rate: 91 P: 64 NE: 187 QRS: 61 QRSD: 96 T: 80 QT: 349 QTc: 431 Interpretive Statements SINUS RHYTHM Compared to ECG 06/23/2021 10:52:26 Sinus arrhythmia no longer present First degree AV block no longer present Electronically Signed On 03-16-2023 10:28:17 CDT by Genesis Hankins M.D. [email or web address]
[2023-03-16 10:47] LABS: Basophils # 0.1 10^3/uL (0.0-0.1); Basophils % 1.4 %; Eosinophils # 0.2 10^3/uL (0.0-0.8); Eosinophils % 2.5 %; Hematocrit 45.9 % (42.0-52.0); Hemoglobin 15.2 g/dL (11.7-16.6); Lymphocytes # 2.5 10^3/uL (0.8-4.8); Lymphocytes % 28.9 %; Mean Corpuscular HGB Conc 33.1 g/dL (30.0-36.0); Mean Corpuscular Volume 84.7 fl (80-94); Mean Platelet Volume 10.3 fL (7.4-10.4); Monocytes # 0.8 10^3/uL (0.2-0.9); Monocytes % 9.5 %; Neutrophils # 4.76 10^3/uL (1.8-7.7); Neutrophils % 54.6 %; Nucleated Red Blood Cells % 0 %; Platelet Count 193 10^3/cmm (130-400); Red Blood Count 5.42 10^6/uL (4.1-5.3); Red Cell Distribution Width 13.7 % (12.1-15.1); White Blood Count 8.7 10^3/uL (4.0-10.0)
[2023-03-16 11:20] LABS: Alanine Aminotransferase 35 U/L (0-41); Albumin Level 4.7 g/dL (3.5-5.2); Alkaline Phosphatase 75 U/L (40-130); Aspartate Amino Transferase 24 U/L (0-40); Blood Urea Nitrogen 14 mg/dL (6-20); Calcium 9.2 mg/dL (8.5-10.5); Carbon Dioxide 27 mmol/L (22-29); Chloride 102 mmol/L (98-107); Creatinine Clr Calc Pharmacy 151.9138; Globulin 2.8 g/dL (1.3-4.6); Glomerular Filtration Rate 107.6 mL/min (90-130); Glucose 93 mg/dL (65-115); Osmolality Calculated 288 mOsm/kg (285-295); Sodium 139 mmol/L (136-145); Total Bilirubin 0.8 mg/dL (0.15-1.2); Total Protein 7.5 g/dL (6.6-8.7)
[2023-03-16 11:27] LABS: Troponin T (5th) Once 6 ng/L (0-15)
--- NOTE | 2023-03-17 09:46 | DCPLANNER ---
manager of exhibitions and collections had message to speak with patient due to no primary care physician. manager of exhibitions and collections called phone number [phone] - unable to speak with patient and unable to leave a voicemail.
== END 2023-03-16 11:52 | disposition home or self-care (01) ==
PROVIDERS: Emergency Provider Physician Assistant
DX: R07.89 Other chest pain (principal); F17.210 Nicotine dependence, cigarettes, uncomplicated
CPT/HCPCS: 71045; 80053; 84484; 85025; 93005; 99285

== ENCOUNTER → 2023-04-29 13:48 | Outpatient (BNVA) | payer SELFPAY | PROVIDERS: Visit Provider Nurse Practitioner Family | DX: J02.9 Acute pharyngitis, unspecified (principal) | CPT/HCPCS: 87071; 87880 ==

== ENCOUNTER 2023-05-08 22:04 | Emergency (ER) | payer SELFPAY ==
[2023-05-08 22:09] VITALS: BP 123/77; PULSE 89; RESP 18; TEMP 36.6; O2SAT 97; BMI 28.5
[2023-05-08 22:58] VITALS: BP 132/84; PULSE 94; RESP 17; O2SAT 94
[2023-05-08] MEDS: diphenhydrAMINE 50 mg Capsule PO (23:17)
[2023-05-08 23:18] VITALS: PULSE 95; RESP 18; O2SAT 97
--- NOTE | 2023-05-08 23:19 | ED_ITS ---
HPI - Animal Bite General: Chief Complaint: Animal Bite Stated Complaint: bug bites both feet Time Seen by Provider: 05/08/23 22:21 Source: patient Mode of arrival: ambulatory Limitations: no limitations History of Present Illness: 38-year-old male states he is at tick bite to his right foot couple days ago he took the tick off he states he has now had some rash with some pruritus he states that he is feeling this with a little swollen denies any pain denies any fever denies any worsening proving factors Associated symptoms: Deny chills, fever(s) or headache(s) Review of Systems Const: Denies: fever(s), chills, body aches or change in appetite ENMT: Denies: throat pain or dental pain Card: Denies: chest pain Resp: Denies: dyspnea GI: Denies: abdominal pain, nausea, vomiting or diarrhea Musc: Reports: extremity swelling; Denies: neck pain, back pain or extremity pain Skin/Breast: Reports: rash Neuro: Denies: headache(s) PFSH ED PFSH: Medical History Anxiety Smoker Stress Family History Mother Brain tumor Father Heart attack Diabetes Stroke Brother Stroke Social History Smoking and tobacco status: current every day smoker Alcohol intake: former Substance/Drug Use: never Physical Exam Const: COMMON NORMALS: no acute distress, patient oriented x3 and healthy appearing HENMT: COMMON NORMALS: normocephalic and atraumatic HEAD & SCALP: normocephalic and atraumatic Eye: COMMON NORMALS: conjunctivae normal CONJUNCTIVA: Yes conjunctivae normal Neck/C-Spine: COMMON NORMALS: full ROM and supple Chest: COMMONS NORMALS: normal inspection of the chest Resp: COMMON NORMALS: normal respiratory effort Cardio: COMMON NORMALS: regular rate and No murmurs present (Cardio) RATE: regular rate Extremity: COMMON NORMALS: full ROM NARRATIVE EXTREMITY EXAM: Appears to have chigger bites to the right foot distal pulses and sensation intact no redness or warmth to touch Neuro: COMMON NORMALS: patient oriented x3, moves all extremities and no focal motor deficits Psych: COMMON NORMALS: mental status grossly normal, Normal thought process present and cooperative THOUGHT PROCESS: Normal thought process present Skin: COMMON NORMALS: no rashes or lesions noted and no wounds GENERAL SKIN EXAM: no rashes or lesions noted Course Vital Signs: Vital signs: Vital Signs Temperature 97.9 F 05/08/23 22:09 Pulse Rate 95 05/08/23 23:18 Respiratory Rate 18 05/08/23 23:18 Blood Pressure 132/84 05/08/23 22:58 Pulse Oximetry 97 05/08/23 23:18 Oxygen Delivery Me thod Room Air 05/08/23 22:58 MDM - Animal Bite Medical Decision Making Patient presents here with insect bite along with tick bites right foot no signs of cellulitis no signs of tickborne illness he does have some pruritus did give him Benadryl he is stable for discharge follow-up with PCP and return if worsening Discharge Plan Discharge Patient Disposition: Home Clinical Impression: Insect bite, Tick bite Condition: Stable Prescriptions: No Action olanzapine 10 mg tablet 10 mg PO DAILY prazosin 2 mg capsule 2 mg PO DAILY hydroxyzine HCl 50 mg tablet 50 mg PO TID PRN amoxicillin 500 mg tablet 500 mg PO TID 10 Days Qty: 30 0RF Discharge Orders: Discharge ED (Routine); Ordered 05/08/23 Ordered By: Jarocho Smiley Discharge Diet: Advance as tolerated Discharge Activity: Resume usual activity Patient Instructions: Insect Bite or Sting (ED), Tick Bite (ED) Coding Level of Care Code ED Manager Communication for Tito Albrecht
== END 2023-05-08 23:19 | disposition home or self-care (01) ==
PROVIDERS: Emergency Provider Emergency Medicine
DX: S90.861A Insect bite (nonvenomous), right foot, initial encounter (principal); W57.XXXA Bitten or stung by nonvenomous insect and other nonvenomous arthropods, initial encounter; L29.9 Pruritus, unspecified; F17.210 Nicotine dependence, cigarettes, uncomplicated
CPT/HCPCS: 99283; Q0163